=== PATIENT | male | born 1990 | race Caucasian/White ===

== ENCOUNTER 2016-11-20 21:27 | Emergency (ER) | payer MEDICAID ==
[~2016-11-20] VITALS: Ht 162.6 cm; Wt 50.0 kg
[2016-11-20 21:30] VITALS: BP 136/84; PULSE 90; RESP 16; TEMP 98.2; O2SAT 99
[2016-11-20] MEDS ORDERED: SODIUM CHLORIDE 0.9% FLUSH 5 ML FLUSH IVF PRN (21:45)
[2016-11-20 21:53] VITALS: RESP 16; O2SAT 99
[2016-11-20 22:04] LABS: AUTOMATED NEUTROPHIL # 8.7 TH/MM3 (1.8-7.7); BASOPHIL % 0.2 % (0.0-2.0); HEMATOCRIT 42.6 % (39.0-51.0); HEMO FLAGS DIFF FINAL; LYMPH % 8.6 % (9.0-44.0); LYMPHOCYTE # 0.9 TH/MM3 (1.0-4.8); MEAN CELL VOLUME 87.9 FL (80.0-100.0); MEAN CORPUSCULAR HEMOGLOBIN 29.9 PG (27.0-34.0); MONO % 3.6 % (0.0-8.0); NEUT % 87.6 % (16.0-70.0); PLATELET COUNT 291 TH/MM3 (150-450); RED BLOOD COUNT 4.85 MIL/MM3 (4.50-5.90); RED CELL DISTRIBUTION WIDTH 12.8 % (11.6-17.2)
[2016-11-20 22:18] VITALS: BP 126/78; PULSE 81; RESP 16; O2SAT 99
--- NOTE | 2016-11-20 22:20 | RADRPT ---
EXAM DATE/TIME: 11/20/2016 21:58 [facility] COMPARISON: CHEST SINGLE AP, January 13, 2015, 14:43. INDICATIONS : Chest pain for 6 hours MEDICAL HISTORY : None. SURGICAL HISTORY : None. ENCOUNTER: Initial ACUITY: 1 day PAIN SCORE: 7/10 LOCATION: Center of chest FINDINGS: A single view of the chest demonstrates the lungs to be symmetrically aerated without evidence of mas s, infiltrate or effusion. The cardiomediastinal contours are unremarkable. Osseous structures are intact. CONCLUSION: No evidence of acute cardiopulmonary disease. Prieto Quintero MD on November 20, 2016 at 22:19 Board Certified Radiologist. This report was verified electronically.
[2016-11-20 22:35] LABS: ANION GAP 12 MEQ/L (5-15); BICARBONATE 26.3 MEQ/L (21.0-32.0); BLOOD UREA NITROGEN 10 MG/DL (7-18); CHLORIDE 99 MEQ/L (98-107); GLOMERULAR FILTRATION RATE 116 ML/MIN (>89); POTASSIUM 3.1 MEQ/L (3.5-5.1); SODIUM (NA) 137 MEQ/L (136-145)
[2016-11-20 22:40] LABS: ALKALINE PHOSPHATASE 78 U/L (45-117); ALT (GPT) 20 U/L (12-78); AST (GOT) 14 U/L (15-37); CREATINE KINASE 105 U/L (39-308); TOTAL BILIRUBIN ADULT 0.8 MG/DL (0.2-1.0)
[2016-11-20 22:45] LABS: APTT (PATIENT) 29.3 SEC (24.3-30.1); INTERNATIONAL NORMALIZED RATIO 1.1 RATIO
[2016-11-20 22:52] LABS: CKMB 0.6 NG/ML (0.5-3.6)
--- NOTE | 2016-11-21 00:30 | PD ---
HPI Chief Complaint: Chest Pain Time Seen by Provider: 21:41 Travel History International Travel<30 days: No Contact w/Intl Traveler<30days: No Traveled to known affect area: No History of Present Illness HPI 26-year-old male presents emergency primary for evaluation of chest pain in the middle of his chest nonradiating accompanied with some mild shortness of breath. Patient states his appetite once the past and was diagnosed with anxiety. Patient does have a history of cerebral palsy. No family history of early NM. Patient has no personal history of NM. He is wheelchair bound no history of blood clots. Patient states this started approximate hour prior to arrival. Has not tried anything to alleviate his symptoms. His chest pain is nearly resolved on arrival. PFSH Past Medical History Cerebral Palsy: Yes Diminished Hearing: No Immunizations Current: Yes Tetanus Vaccination: < 5 Years Influenza Vaccination: Yes Social History Alcohol Use: Yes (SOCIALLY) Tobacco Use: No Substance Use: No Allergies-Medications (Allergen,Severity, Reaction): Coded Allergies: No Known Allergies (Unverified , 11/21/16) Reported Meds & Prescriptions Reported Meds & Active Scripts Active Ativan (Lorazepam) 0.5 Mg Tab 1-2 Tab PO Q6H PRN Review of Systems Except as stated in HPI: all other systems reviewed are Neg Physical Exam Narrative GENERAL: Well-developed well-nourished no apparent distress. SKIN: Warm and dry. HEAD: Atraumatic. Normocephalic. EYES: Pupils equal and round. No scleral icterus. No injection or drainage. ENT: No nasal bleeding or discharge. Mucous membranes pink and moist. NECK: Trachea midline. No JVD. CARDIOVASCULAR: Regular rate and rhythm. No murmur appreciated. 2+ bilaterally equal pulses in all 4 extremities. RESPIRATORY: No accessory muscle use. Clear to auscultation. Breath sounds equal bilaterally. GASTROINTESTINAL: Abdomen soft, non-tender, nondistended. Hepatic and splenic margins not palpable. MUSCULOSKELETAL: No obvious deformities. No clubbing. No cyanosis. No edema. NEUROLOGICAL: Awake and alert. No obvious cranial nerve deficits. Motor grossly within normal limits. Normal speech. PSYCHIATRIC: Appropriate mood and affect; insight and judgment normal. Data Data Last Documented VS Vital Signs Date Time Temp Pulse Resp B/P Pulse Ox O2 Delivery O2 Flow Rate FiO2 11/21/16 00:42 98.2 71 16 112/63 100 11/20/16 22:18 Room Air Orders Electrocardiogram (11/20/16 21:42) Ckmb (Isoenzyme) Profile (11/20/16 21:42) Complete Blood Count With Diff (11/20/16 21:42) Comprehensive Metabolic Panel (11/20/16 21:42) Magnesium (Mg) (11/20/16 21:42) Prothrombin Time / Inr (Pt) (11/20/16 21:42) Act Partial Throm Time (Ptt) (11/20/16 21:42) Troponin I (11/20/16 21:42) Lipase (11/20/16 21:42) Chest, Single Ap (11/20/16 21:42) Ecg Monitoring (11/20/16 21:42) Bilateral Bp Monitoring (11/20/16 21:42) Iv Access Insert/Monitor (11/20/16 21:42) Oximetry (11/20/16 21:42) Oxygen Administration (11/20/16 21:42) Sodium Chloride 0.9% Flush (Ns Flush) (11/20/16 21:45) D-Dimer (11/20/16 22:12) CKMB (11/20/16 21:55) CKMB% (11/20/16 21:55) Troponin I (11/20/16 23:48) Labs Laboratory Tests Test 11/20/16 11/20/16 21:55 23:55 White Blood Count 10.0 TH/MM3 Red Blood Count 4.85 MIL/MM3 Hemoglobin 14.5 GM/DL Hematocrit 42.6 % Mean Corpuscular Volume 87.9 FL Mean Corpuscular Hemoglobin 29.9 PG Mean Corpuscular Hemoglobin 34.0 % Concent Red Cell Distribution Width 12.8 % Platelet Count 291 TH/MM3 Mean Platelet Volume 8.8 FL Neutrophils (%) (Auto) 87.6 % Lymphocytes (%) (Auto) 8.6 % Monocytes (%) (Auto) 3.6 % Eosinophils (%) (Auto) 0.0 % Basophils (%) (Auto) 0.2 % Neutrophils # (Auto) 8.7 TH/MM3 Lymphocytes # (Auto) 0.9 TH/MM3 Monocytes # (Auto) 0.4 TH/MM3 Eosinophils # (Auto) 0.0 TH/MM3 Basophils # (Auto) 0.0 TH/MM3 CBC Comment DIFF FINAL Differential Comment Prothrombin Time 12.0 SEC Prothromb Time International 1.1 RATIO Ratio Activated Partial 29.3 SEC Thromboplast Time D-Dimer Quantitative (PE/DVT) LESS THAN 0.19 MG/L FEU Sodium Level 137 MEQ/L Potassium Level 3.1 MEQ/L Chloride Level 99 MEQ/L Carbon Dioxide Level 26.3 MEQ/L Anion Gap 12 MEQ/L Blood Urea Nitrogen 10 MG/DL Creatinine 0.80 MG/DL Estimat Glomerular Filtration 116 ML/MIN Rate Random Glucose 125 MG/DL Calcium Level 9.2 MG/DL Magnesium Level 2.0 MG/DL Total Bilirubin 0.8 MG/DL Aspartate Amino Transf 14 U/L (AST/SGOT) Alanine Aminotransferase 20 U/L (ALT/SGPT) Alkaline Phosphatase 78 U/L Total Creatine Kinase 105 U/L Creatine Kinase MB 0.6 NG/ML Troponin I LESS THAN 0.02 LESS THAN 0.02 NG/ML NG/ML Total Protein 8.5 GM/DL Albumin 4.9 GM/DL Lipase 131 U/L [facility] Medical Decision Making Medical Screen Exam Complete: Yes Emergency Medical Condition: Yes Interpretation(s) EKG shows sinus arrhythmia normal axis normal R-wave progression. No concerning ST T changes intervals within normal limits. This normal EKG. Differential Diagnosis ACS unlikely, NM likely, PE unlikely, pericarditis, costochondritis, esophagitis, gastritis. Narrative Course Patient roomed in the emergency department, he is low but not absent risk for PE , d-dimer sent and negative. Troponin negative 2, EKG is reassuring. Chest x- ray negative. Last 24 hours Impressions Chest X-Ray 11/20/[id number] Signed Impressions: Service Date/Time: Sunday, November 20, 2016 21:58 - CONCLUSION: No evidence of acute cardiopulmonary disease. Prieto Quintero MD Discussed with patient he is highly atypical for ACS and stable for discharge. Discussed he needs to follow up with his primary care physician and discussed return to ED criteria. He is a nonsmoker and does not use any drugs. Discussed healthy lifestyle. Diagnosis Primary Impression: Chest pain with low risk for cardiac etiology Disposition: 01 DISCHARGE HOME Condition: Stable Luciano Ellis MD Nov 21, 2016 00:30
[2016-11-21 00:42] VITALS: BP 112/63; TEMP 98.2
[2016-11-21] MEDS ORDERED: LORA-392 PO (15:19)
--- NOTE | 2016-11-21 19:53 | EKG ---
Date Performed: 11/20/2016 Time Performed: 21:32:37 PTAGE: 26 years EKG: Sinus rhythm WITH SINUS ARRHYTHMIA NORMAL ECG PREVIOUS TRACING : 01/13/2015 14.18 Compared to prior tracing no significant change DOCTOR: Jarred Marin Interpretating Date/Time 11/21/2016 19:52:41
[2017-03-27] MEDS ORDERED: LORA-392 PO (15:12)
[2017-03-27] MEDS ORDERED: WHEEMIS3 (15:12)
== END 2016-11-21 01:00 | disposition home or self-care (01) ==
LOC: NEPA 21:27
DX: R07.9 Chest pain, unspecified (principal); R06.02 Shortness of breath; I49.8 Other specified cardiac arrhythmias
CPT/HCPCS: 71010; 80053; 82550; 82552; 83690; 83735; 84484; 85025; 85379; 85610; 85730; 93005

== ENCOUNTER 2017-08-23 02:22 | Emergency (ER) | payer MEDICAID ==
[~2017-08-23 02:22] MED LIST: LORA-392 PO; WHEEMIS3
[2017-08-23] MEDS ORDERED: SODIUM CHLORIDE 0.9% FLUSH 10 ML FLUSH IV FLUSH PRN (02:45)
[2017-08-23 02:49] VITALS: BP 134/88; PULSE 82; RESP 16; TEMP 98.2; O2SAT 99
[2017-08-23 02:54] VITALS: BP 134/88; PULSE 82; RESP 16; TEMP 98.2; O2SAT 99
--- NOTE | 2017-08-23 02:57 | PD ---
HPI Chief Complaint: diarrhea Time Seen by Provider: 02:37 Travel History International Travel<30 days: No Contact w/Intl Traveler<30days: No History of Present Illness HPI Patient comes into the emergency department after having 2 episodes of loose stool tonight. Patient denies any blood in stool, darkening of stool, abnormal color of the stool, recent antibiotic use, or known sick contacts. However patient does report he uses public transportation. Patient denies any abdominal pain, nausea, vomiting, fevers, chest pain, shortness of breath, back pain, or loss or change in bladder. Patient denies doing anything for this prior to calling 911. Denies anything making symptoms better or worse. Patient reports he does live by himself. PFSH Past Medical History Cerebral Palsy: Yes Diminished Hearing: No Immunizations Current: Yes Social History Alcohol Use: Yes (SOCIALLY) Tobacco Use: No Substance Use: No Allergies-Medications (Allergen,Severity, Reaction): Coded Allergies: No Known Allergies (Unverified Allergy, Unknown, 08/23/17) Reported Meds & Prescriptions Reported Meds & Active Scripts Active Wheelchair (Device) 1 Mis Mis 1 Ea .ROUTE DIRECTED Ativan (Lorazepam) 0.5 Mg Tab 1-2 Tab PO Q6H PRN Review of Systems Except as stated in HPI: all other systems reviewed are Neg Physical Exam Narrative GENERAL: Well nourished, in no acute distress, and non-ill appearing. SKIN: Focused skin assessment warm and dry. HEAD: Atraumatic. Normocephalic. EYES: Pupils equal and round. EOMI. No scleral icterus. No injection or drainage. ENT: No nasal bleeding or discharge. Mucous membranes pink and moist. NECK: Trachea midline. Supple. No nuclear rigidity. CARDIOVASCULAR: Regular rate and rhythm. No murmur appreciated. RESPIRATORY: No accessory muscle use. No respiratory distress. Clear to auscultation. Breath sounds equal bilaterally. GASTROINTESTINAL: Abdomen soft, non-tender, nondistended, and no guarding. Hepatic and splenic margins not palpable. Normal bowel sounds 4. No pulsatile mass. MUSCULOSKELETAL: No obvious deformities. No clubbing. No cyanosis. No edema. NEUROLOGICAL: Awake and alert. No obvious cranial nerve deficits. PSYCHIATRIC: Appropriate mood and affect; insight and judgment normal. Data Data Last Documented VS Vital Signs Date Time Temp Pulse Resp B/P (MAP) Pulse Ox O2 Delivery O2 Flow Rate FiO2 08/23/17 04:23 08/23/17 02:54 98.2 82 16 99 08/23/17 02:49 Room Air Orders Orders Complete Blood Count With Diff (08/23/17 02:38) Comprehensive Metabolic Panel (08/23/17 02:38) Lipase (08/23/17 02:38) Iv Access Insert/Monitor (08/23/17 02:38) Ecg Monitoring (08/23/17 02:38) Oximetry (08/23/17 02:38) Sodium Chloride 0.9% Flush (Ns Flush) (08/23/17 02:45) Influenzae A/B Antigen (08/23/17 02:38) Potassium Chloride (Kcl) (08/23/17 03:45) Ed Discharge Order (08/23/17 03:49) Labs Laboratory Tests Test 08/23/17 03:00 White Blood Count 10.7 TH/MM3 Red Blood Count 4.83 MIL/MM3 Hemoglobin 15.1 GM/DL Hematocrit 43.3 % Mean Corpuscular Volume 89.8 FL Mean Corpuscular Hemoglobin 31.3 PG Mean Corpuscular Hemoglobin Concent 34.9 % Red Cell Distribution Width 13.0 % Platelet Count 260 TH/MM3 Mean Platelet Volume 9.2 FL Neutrophils (%) (Auto) 75.3 % Lymphocytes (%) (Auto) 17.6 % Monocytes (%) (Auto) 6.7 % Eosinophils (%) (Auto) 0.2 % Basophils (%) (Auto) 0.2 % Neutrophils # (Auto) 8.0 TH/MM3 Lymphocytes # (Auto) 1.9 TH/MM3 Monocytes # (Auto) 0.7 TH/MM3 Eosinophils # (Auto) 0.0 TH/MM3 Basophils # (Auto) 0.0 TH/MM3 CBC Comment DIFF FINAL Differential Comment Blood Urea Nitrogen 12 MG/DL Creatinine 0.80 MG/DL Random Glucose 132 MG/DL Total Protein 8.2 GM/DL Albumin 4.4 GM/DL Calcium Level 9.1 MG/DL Alkaline Phosphatase 77 U/L Aspartate Amino Transf (AST/SGOT) 27 U/L Alanine Aminotransferase (ALT/SGPT) 54 U/L Total Bilirubin 0.5 MG/DL Sodium Level 139 MEQ/L Potassium Level 3.2 MEQ/L Chloride Level 102 MEQ/L Carbon Dioxide Level 28.1 MEQ/L Anion Gap 9 MEQ/L Estimat Glomerular Filtration Rate 115 ML/MIN Lipase 136 U/L MDM Medical Decision Making Medical Screen Exam Complete: Yes Emergency Medical Condition: Yes Differential Diagnosis Diarrhea, gastroenteritis, metabolic disturbance, diverticulitis, influenza Narrative Course Patient looks great, non-ill appearing. The patient is tolerating fluids and is well hydrated. The abdominal exam is unremarkable. There are normal active bowel sounds without any masses, distension, or significant tenderness. There is no reported blood in the stool. No clinical evidence by history, exam, or evaluation to suspect appendicitis, obstruction or other acute surgical abdomen at this time. The patient was tolerating fluids at time of discharge. It was discussed with the patient, diagnosis, and plan of care and to follow up with the patients primary physician. The parent was also informed that they may return here for follow up if they are unable to follow up with their doctor. Abdominal warnings were discussed. The patient was instructed to return sooner if the patient worsens in anyway, especially if the abdominal pain changes, the patient experiences more pain, is not tolerating fluids, increased diarrhea, bloody stools, the patient develops persistent vomiting, has decreased activity , or dizziness with standing or as needed. The patient agreed with plan. Patient in no obvious distress upon re-evaluation. All pertinent laboratory result(s) discussed with patient. Discussed patient with Dr. Harden prior discharge, who is in agreement with plan of care and disposition. Any questions /concerns in reference to patient diagnosis/condition discussed and clarified prior to patient's discharge. Reinforced sheer importance of close follow up with patient's primary physician or primary care clinic. Instructed patient to return to ED immediately, if symptoms return/worsen. Patient showed understanding of above instructions. Further instructions and recommendations were detailed in discharge paperwork. Patient left without difficulty out of ED at discharge. Diagnosis Primary Impression: Hypokalemia Additional Impression: Loose stools Patient Instructions: Acute Diarrhea (GEN), General Instructions, Hypokalemia ( ED) Additional Instructions: Follow-up with your primary care physician next week for reevaluation. Return to the emergency department if symptoms get worse. Disposition: 01 DISCHARGE HOME Condition: Stable David Patino Aug 23, 2017 02:57
[2017-08-23 03:10] LABS: BASOPHIL % 0.2 % (0.0-2.0); EOSINOPHIL % 0.2 % (0.0-4.0); HEMATOCRIT 43.3 % (39.0-51.0); HEMO FLAGS DIFF FINAL; LYMPH % 17.6 % (9.0-44.0); LYMPHOCYTE # 1.9 TH/MM3 (1.0-4.8); MEAN CELL VOLUME 89.8 FL (80.0-100.0); MEAN CORPUSCULAR HEMOGLOBIN 31.3 PG (27.0-34.0); MEAN CORPUSCULAR HGB CONC 34.9 % (32.0-36.0); MONO % 6.7 % (0.0-8.0); NEUT % 75.3 % (16.0-70.0); PLATELET COUNT 260 TH/MM3 (150-450); RED BLOOD COUNT 4.83 MIL/MM3 (4.50-5.90); WHITE BLOOD COUNT 10.7 TH/MM3 (4.0-11.0)
[2017-08-23 03:29] LABS: ALKALINE PHOSPHATASE 77 U/L (45-117); TOTAL BILIRUBIN ADULT 0.5 MG/DL (0.2-1.0)
[2017-08-23 03:34] LABS: ALT (GPT) 54 U/L (12-78); ANION GAP 9 MEQ/L (5-15); AST (GOT) 27 U/L (15-37); BICARBONATE 28.1 MEQ/L (21.0-32.0); BLOOD UREA NITROGEN 12 MG/DL (7-18); CHLORIDE 102 MEQ/L (98-107); GLOMERULAR FILTRATION RATE 115 ML/MIN (>89); POTASSIUM 3.2 MEQ/L (3.5-5.1); SODIUM (NA) 139 MEQ/L (136-145)
[2017-08-23] MEDS ORDERED: POTASSIUM CHLORIDE 10 MEQ CAP PO ONE (03:45)
== END 2017-08-23 04:32 | disposition home or self-care (01) ==
LOC: NEPD 02:22
DX: R19.7 Diarrhea, unspecified (principal); E87.6 Hypokalemia; G80.9 Cerebral palsy, unspecified
CPT/HCPCS: 80053; 83690; 85025; 87804; 99285